=== PATIENT | female | born 1970 | race Caucasian/White ===

== ENCOUNTER → 2016-02-24 | Outpatient (CLI) | payer OTHER ==
--- NOTE | 2016-02-24 20:02 | RESP ---
DATE OF SERVICE: 02/24/2016 ATTENDING PHYSICIAN: Mihir Rosenberg MD The patient's FVC was 4.28, which is 103% predicted; FEV1 3.49, which is 104% predicted; the FEV1/FVC ratio was normal. No bronchodilators were given. Total lung capacity was 113% predicted, residual volume 136% predicted, diffusion capacity 128% predicted. IMPRESSION: 1. No evidence of any obstructive airway disease. 2. No bronchodilators were given. 3. Lung volumes consistent with air trapping. 4. Increased diffusion capacity. DANIELA ORDONEZ MD DR: STEVE/adrian JOB#: [id number] / [id number] MIHIR Sosa MD MTDD
== END | disposition home or self-care (01) ==
LOC: PF 09:07
PROVIDERS: ATTEND Internal Medicine Cardiovascular Disease
DX: R06.09 Other forms of dyspnea (principal)
CPT/HCPCS: 94010; 94729